=== PATIENT | male | born 1960 | race African-American/Black ===

== ENCOUNTER 2018-05-19 10:14 | Day surgery (SDC) | payer BC, OTHER ==
[2018-05-12 09:43] LABS: ANION GAP 8 (5-19); BLOOD UREA NITROGEN 14 mg/dL (7-20); CALCIUM 9.6 mg/dL (8.4-10.2); CARBON DIOXIDE 28 mmol/L (22-30); CHLORIDE 105 mmol/L (98-107); GLUCOSE 114 mg/dL (75-110); POTASSIUM 4.3 mmol/L (3.6-5.0); SODIUM 141.4 mmol/L (137-145)
[~2018-05-19 10:14] MED LIST: BUPIVACAINE HCL 0.5 % INJ/PF 30 ML SDV ONE; CEFAZOLIN 1 GM/D5W RTU 0 GM/0 ML RTUPB IV ONE; CEFAZOLIN 2 GM/D5W RTU 2 GM/50 ML RTUPB IV ONE; CEFAZOLIN 2 GM/D5W RTU 2 GM/50 ML RTUPB IV PRN; LACTATED RINGERS 1000 ML IV PRN; LIDOCAINE 0.5% INJ-PF (5 MG/ML) 50 ML SDV SUBCUT PRN; LIDOCAINE 1% INJ-PF (10 MG/ML) 30 ML SDV ONE
[2018-05-19 11:17] LABS: POTASSIUM 4.2 mmol/L (3.6-5.0)
[2018-05-19] MEDS ORDERED: PROPOFOL INJ 200 MG/20 ML VIAL IV ONE (11:46)
[2018-05-19] MEDS ORDERED: MIDAZOLAM 2 MG/2 ML INJ ONE (11:46)
[2018-05-19] MEDS ORDERED: FAMOTIDINE INJ/PF 20 MG/2 ML SDV IV ONE ×2 (11:53→12:30)
[2018-05-19] MEDS ORDERED: METOCLOPRAMIDE HCL INJ/PF 10 MG/2 ML SDV ONE (11:53)
[2018-05-19] MEDS ORDERED: FENTANYL CITRATE INJ/PF 100 MCG/2 ML AMPUL IV PRN ×3 (12:13)
[2018-05-19] MEDS ORDERED: PROMETHAZINE HCL INJ 25 MG/1 ML VIAL IV PRN ×2 (12:13)
[2018-05-19] MEDS ORDERED: MEPERIDINE HCL/PF INJ 25 MG/1 ML DISP.SYRIN IV PRN (12:13)
[2018-05-19] MEDS ORDERED: DIPHENHYDRAMINE HCL 50 MG/ML VIAL IV PRN (12:13)
[2018-05-19] MEDS ORDERED: METOCLOPRAMIDE HCL INJ/PF 10 MG/2 ML SDV IV ONE (12:30)
--- NOTE | 2018-05-19 12:56 | Discharge Summary ---
Discharge Summary (SDC) - Discharge Final Diagnosis: 7 cm buttock lipoma Date of Surgery: 05/19/18 Discharge Date: 05/19/18 Condition: Stable Treatment or Instructions: Discharge home. Diet as tolerated. Activity: Nonstrenuous. Caspian 5/325 mg p.o. every 6 hours as needed pain. Okay to shower starting Tuesday. Keep area clean and dry. Referrals: JOANNE HANCOCK MD [Primary Care Provider] - Discharge Diet: As Tolerated Respiratory Treatments at Home: Deep Breathing/Coughing, Incentive Spirometer Discharge Activity: Balance Activity w/Rest Home Care Assistance: None Needed Report the Following to Your Physician Immediately: Shortness of Breath, Nausea , Vomiting, Increase in Pain, Fever over 101 Degrees, Unusual Bleeding
--- NOTE | 2018-05-19 13:01 | Operative Report ---
Nonrecallable Operative Report DATE OF SURGERY: 05/19/18 PREOPERATIVE DIAGNOSIS: 7 centimeter buttock lipoma POSTOPERATIVE DIAGNOSIS: Same OPERATION: 1. Excision of a 7 cm buttock lipoma. 2. Intermediate closure of a 5 cm buttock incision. SURGEON: ROBB REDMOND ANESTHESIA: LMAC TISSUE REMOVED OR ALTERED: 7 cm buttock lipoma COMPLICATIONS: None apparent ESTIMATED BLOOD LOSS: Minimal PROCEDURE: Procedure in detail: After informed consent was obtained, the patient was brought in the operating room and laid in the right lateral decubitus position. The area of the right buttock was prepped and draped in a normal sterile fashion. A 15 blade scalpel was used to create an elliptical incision around the skin of the right buttock lipoma. It measured 5 cm in length. Dissection was carried through the subcutaneous tissue using Bovie electrocautery. The lipoma was excised in its entirety. The lipoma was removed from the patient. It measured to be approximately 7 cm in total diameter. The subcutaneous tissue was closed using 3-0 Vicryl suture in simple running fashion. The overlying skin was closed using 4-0 Vicryl Rapide suture in subcuticular fashion. Dressings were placed and the procedure was concluded. All sponge, instrument, needle counts were correct x2. Condition: Stable.
[2018-05-19 14:36] VITALS: BP 133/79
== END 2018-05-19 14:23 | disposition home or self-care (01) ==
LOC: OROUT 10:14
PROVIDERS: ATTEND Surgery
DX: D17.1 Benign lipomatous neoplasm of skin and subcutaneous tissue of trunk (principal); E11.9 Type 2 diabetes mellitus without complications; I10 Essential (primary) hypertension; K21.9 Gastro-esophageal reflux disease without esophagitis; E78.5 Hyperlipidemia, unspecified; R97.20 Elevated prostate specific antigen [PSA]; Z87.891 Personal history of nicotine dependence; Z86.010 Personal history of colon polyps; Z79.899 Other long term (current) drug therapy; Z79.84 Long term (current) use of oral hypoglycemic drugs; Z79.82 Long term (current) use of aspirin; Z88.5 Allergy status to narcotic agent
CPT/HCPCS: 93005; 36415 ×2; 82947; 84132; 80048; 88304 ×2; 93010; 21931; J2250; J3490 ×2; J2765; J2704; S0028; J0690; 300